=== PATIENT | female | born 1960 | race Caucasian/White ===

== ENCOUNTER 2021-03-18 06:12 | Day surgery (SDC) | payer BC ==
[~2021-03-18] VITALS: Ht 167.6 cm; Wt 130.6 kg
[~2021-03-18 06:12] MED LIST: ASCO500 PO; ASPI325 PO; CALCAVITD PO; FISH1000 PO; GLIP5 PO; KETO10 PO; LEVSOD50 PO; MAGNESIUM PO; METF500 PO; METO50ER PO; MULTIVITAMIN; OXYACE5T PO; PANT40 PO; PROM25 PO; TAMS.4ER PO
[2021-03-18] MEDS ORDERED: ASPI81CH PO (06:56)
[2021-03-18] MEDS ORDERED: VITAMIN D31000 UNI1 PO (06:57)
[2021-03-18] MEDS ORDERED: MAGNESIUM GLU27.5 M1 PO (06:58)
[2021-03-18] MEDS ORDERED: VICTOZA 2-0.6 MG/0.1 SC (06:59)
[2021-03-18] MEDS ORDERED: ALLEGRA ALLERGY60 MG PO (07:00)
[2021-03-18] MEDS ORDERED: ROSUVASTATIN CA20 MG PO (07:00)
[2021-03-18] MEDS ORDERED: METOPROLOL TART25 MG PO (07:01)
[2021-03-18] MEDS ORDERED: SYNTHROID75 MCG PO (07:01)
[2021-03-18] MEDS ORDERED: ESTRADIOL (TWI1 EAC4 TD (07:02)
[2021-03-18] MEDS ORDERED: TRAM50 PO (07:02)
[2021-03-18] MEDS ORDERED: CLONAZEPAM1 MG PO (07:03)
[2021-03-18] MEDS ORDERED: FUROSEMIDE20 MG PO (07:03)
[2021-03-18] MEDS ORDERED: POTA10T PO (07:04)
== END 2021-03-18 08:15 | disposition home or self-care (01) ==
LOC: ORSCSDS 06:12
PROVIDERS: Orthopaedic Surgery
PROC: 01N50ZZ Release Median Nerve, Open Approach (ICD-10-PCS; principal; 2021-03-18 07:30)
DX: G56.01 Carpal tunnel syndrome, right upper limb (principal); K21.9 Gastro-esophageal reflux disease without esophagitis; G47.33 Obstructive sleep apnea (adult) (pediatric); E11.9 Type 2 diabetes mellitus without complications; E66.01 Morbid (severe) obesity due to excess calories; Z68.42 Body mass index [BMI] 45.0-49.9, adult; Z79.82 Long term (current) use of aspirin; Z79.899 Other long term (current) drug therapy
CPT/HCPCS: 82947; J0690; J2250; J2405; J2704; J3010; J7120

== ENCOUNTER 2022-10-23 12:53 | Emergency (ER) | payer BC ==
[~2022-10-23] VITALS: Ht 165.1 cm; Wt 130.2 kg
[~2022-10-23 12:53] MED LIST changes: +ALLEGRA ALLERGY60 MG PO; +ASPI81CH PO; +CLONAZEPAM1 MG PO; +ESTRADIOL (TWI1 EAC4 TD; +FUROSEMIDE20 MG PO; +MAGNESIUM GLU27.5 M1 PO; +METOPROLOL TART25 MG PO; +POTA10T PO; +ROSUVASTATIN CA20 MG PO; +SYNTHROID75 MCG PO; +TRAM50 PO; +VICTOZA 2-0.6 MG/0.1 SC; +VITAMIN D31000 UNI1 PO
== END 2022-10-23 15:21 | disposition home or self-care (01) ==
LOC: ER 12:53
DX: S06.9X9A Unspecified intracranial injury with loss of consciousness of unspecified duration, initial encounter (principal); E11.9 Type 2 diabetes mellitus without complications; W19.XXXA Unspecified fall, initial encounter; Z79.899 Other long term (current) drug therapy; Z79.82 Long term (current) use of aspirin; Z79.890 Hormone replacement therapy
CPT/HCPCS: 70450; 99284-25

== ENCOUNTER → 2023-07-05 | Outpatient (CLI) | payer BC | LOC: LAB 08:30 → LAB SHORT 08:30 | DX: L08.0 Pyoderma (principal) | CPT/HCPCS: 87070; 87205 ==